=== PATIENT | male | born 1995 | race Caucasian/White ===

== ENCOUNTER 2018-08-25 22:41 | Emergency (ER) | payer OTHER ==
[2018-08-25] MEDS ORDERED: cefTRIAXone 1 GM VIAL IM STA (22:58)
[2018-08-25] MEDS ORDERED: DEXAMETHASONE 10 MG/ML VIAL PO STA (22:58)
[2018-08-25] MEDS ORDERED: CHERRY SYRUP 10 ML UDC PO ONE (22:58)
[2018-08-25] MEDS ORDERED: LIDOCAINE 1% 2 ML VIAL MC ONE (22:58)
[2018-08-25] MEDS ORDERED: HYDROcod/ACETAM 5/325 MG TABLET PO STA (22:58)
--- NOTE | 2018-08-25 23:02 | ED Physician Documentation ---
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 He states the pain will spike and he has had some dizziness he has had a spike high enough of the pain that he had a syncopal episode. He is come down to the emergency department for evaluation. Review of Systems Constitutional: denies: Fever Eyes: denies: Decreased vision Ears: reports: Loss of hearing, Ear pain Nose: reports: Congestion. denies: Rhinorrhea / runny nose Throat: denies: Sore throat Cardiac: denies: Chest pain / pressure, Palpitations Respiratory: reports: Cough. denies: Dyspnea GI: denies: Nausea, Vomiting : denies: Dysuria Skin: denies: Rash Musculoskeletal: denies: Neck pain, Back pain, Extremity pain Neurologic: reports: Syncope, Headache, Other (dizziness). denies: Generalized weakness, Focal weakness, Numbness, Altered mental status, Head injury PD PAST MEDICAL HISTORY - Past Medical History Past Medical History: No - Past Surgical History Past Surgical History: Yes - Present Medications Home Medications: Ambulatory Orders Medication Instructions Recorded Confirmed Amox/Clav 875/125 [Augmentin] 1 each PO Q12H #20 tablet 08/25/18 Hydrocodone/Acetaminophen 1 - 2 each PO Q6H PRN #14 tablet 08/25/18 [Hydrocodon-Acetaminophen 5-325] - Allergies Allergies/Adverse Reactions: Allergies Allergy/AdvReac Type Severity Reaction Status Date / Time shellfish derived Allergy Hives Verified 08/25/18 22:51 Sulfa (Sulfonamide Allergy Hives Verified 08/25/18 22:49 Antibiotics) - Social History Does the pt smoke?: No Smoking Status: Never smoker Does the pt drink ETOH?: Yes ETOH Use: Beer Does the pt have substance abuse?: No - Immunizations Immunizations are current?: Yes - POLST Patient has POLST: No PD ED PE NORMAL - Vitals Vital signs reviewed: Yes (normal ) - General General: Alert and oriented X 3, Well developed/nourished, Other (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 He also has some nystagmus on exam and has had a syncopal episode at home. He otherwise appears well. He is administered dexamethasone 10 mg orally Rocephin 1 g IM and hydrocodone. Departure - Departure Disposition: 01 Home, Self Care Clinical Impression: Otitis media Qualifiers: Otitis media type: suppurative Chronicity: acute Laterality: left Recurrence: non-recurrent Spontaneous tympanic membrane rupture: without spontaneous rupture Qualified Code(s): H66.002 - Acute suppurative otitis media without spontaneous rupture of ear drum, left ear Condition: Stable Instructions: ED Otitis Media Acute Adult Follow-Up: RAVI GUTIERREZ [Primary Care Provider] - Prescriptions: Amox/Clav 875/125 [Augmentin] 1 each PO Q12H #20 tablet Hydrocodone/Acetaminophen [Hydrocodon-Acetaminophen 5-325] 1 - 2 each PO Q6H PRN #14 tablet PRN Reason: pain Forms: Activity restrictions
[2018-08-25] MEDS ORDERED: HYDROcod/ACET 5/325 Prepack 4 PO STA (23:07)
[2018-08-25 23:28] VITALS: BP 130/72
== END 2018-08-25 23:40 | disposition home or self-care (01) ==
LOC: ED 22:41
DX: H66.002 Acute suppurative otitis media without spontaneous rupture of ear drum, left ear (principal); R55 Syncope and collapse; H55.00 Unspecified nystagmus
CPT/HCPCS: 96372; 99283; A9270